=== PATIENT | female | born 1945 | race Caucasian/White ===

== ENCOUNTER 2017-09-13 09:36 | Emergency (ER) | payer OTHER ==
[~2017-09-13] VITALS: Ht 152.4 cm; Wt 72.1 kg
[~2017-09-13 09:36] MED LIST changes: -METFORMIN HCL500 MG; -PNEU16DI2; -SINGULAIR10 MG
[2017-09-13] MEDS ORDERED: METFORMIN HCL500 MG (12:07)
[2017-09-13] MEDS ORDERED: SINGULAIR10 MG (12:08)
[2017-09-13] MEDS ORDERED: PNEU16DI2 (12:08)
== END 2017-09-13 17:32 | disposition designated cancer center or children's hospital (05) ==
LOC: ER 09:36 → CPU-OBS 10:07 → ER 17:32
DX: I11.0 Hypertensive heart disease with heart failure (principal); I50.20 Unspecified systolic (congestive) heart failure; R07.89 Other chest pain

== ENCOUNTER → 2017-09-13 | Outpatient (CLI) | payer OTHER ==
[~2017-09-13] MED LIST: METFORMIN HCL500 MG; PNEU16DI2; SINGULAIR10 MG; SYNTHROID200 MCG PO
== END | disposition home or self-care (01) ==
LOC: NUCLEAR 07:00
DX: I27.89 Other specified pulmonary heart diseases (principal); I11.9 Hypertensive heart disease without heart failure; J45.909 Unspecified asthma, uncomplicated; Z95.0 Presence of cardiac pacemaker; R94.31 Abnormal electrocardiogram [ECG] [EKG]
CPT/HCPCS: 78452; 93017; A9500; J1250